=== PATIENT | female | born 1960 | race Caucasian/White ===

== ENCOUNTER → 2022-08-28 15:56 | Outpatient (REF) | payer OTHER, SELFPAY ==
--- NOTE | 2022-08-28 16:05 | CA_ITS ---
Transthoracic Echocardiogram Patient (Last, First, Middle): Rosemary Ernst, Gender: Female Date of : 1960 Age: 62 Procedure Date: 08/28/2022 Procedure Type: Transthoracic Echocardiogram Location: OP Height: 162.56 cm Weight: 58.97 kg BSA: 1.63 m2 Heart Rate: bpm BP: 122 / 60 mmHg [place] Working Supervisor: Referring MD: Preston Yates Symptoms: SUDDEN ONSET DE ANDA R06.09 OTHER FORMS DYSPNEA Study Quality: Fair ECG Rhythm: Sinus Conclusions: - The left ventricular systolic function is normal. The visually estimated ejection fraction is between 60-65%. - The basal inferior, mid inferior, mid inferoseptal, basal anteroseptal, and mid anteroseptal segments are hypokinetic. - No obvious valvular pathology seen on this study. Findings Left Ventricle Normal left ventricular cavity size. There is normal left ventricular wall thickness. The left ventricular systolic function is normal. The visually estimated ejection fraction is between 60-65%. There is evidence of regional wall motion abnormalities. Diastolic function is normal for age. LV peak GLS -20.6%. Wall Motion Rest Echo Findings The basal inferior, mid inferior, mid inferoseptal, basal anteroseptal, and mid anteroseptal segments are hypokinetic. Right Ventricle Normal right ventricular cavity size and systolic function. Atria Both atria are normal in size. Aortic Valve There is a normal trileaflet aortic valve. There is no aortic valve stenosis. There is no aortic valve regurgitation. Mitral Valve The mitral valve appears normal. There is trace mitral valve regurgitation. There is no mitral valve stenosis. Pulmonic Valve The pulmonic valve is likely normal. Tricuspid Valve Normal tricuspid valve structure. There is trace tricuspid valve regurgitation. There is no evidence of pulmonary hypertension. Great Vessels The asc aorta is normal in size. Venous The inferior vena cava is normal in size and collapses greater than 50% with inspiration. Pericardium/Pleural There is no evidence of pericardial effusion. Prior Study Comparison No prior study available for comparison. Recommendations, Care & Conclusions No obvious valvular pathology seen on this study. Measurements 2D Linear Measurements IVSd: 0.86 0.6-0.9/0.6-1.0 cm LVIDd: 3.89 3.9-5.3/4.2-5.9 cm LVIDd Index: 2.39 2.4-3.2/2.2-3.1 cm/m2 LVIDs: 2.57 2.0-3.6 cm LVPWd: 0.91 0.7-1.1 cm Ao Root: 3.00 2.1-3.5 cm LA Diam: 2.80 2.7-3.8/3.0-4.0 cm LAIDs Index: 1.72 1.5-2.3 cm/m2 LV Mass: 127.56 67-162/88-224 g LV Mass Index: 78.26 43-95/49-115 g/m2 LVOT Diam: 1.90 3.0+(-)1.3 cm Mitral Valve MV Pk E: 0.77 MV PK A: 0.56 MV Decel Time: 199.00 E/A: 1.40 E'Lateral: 9.46 E'Medial: 9.36 E/E' Med: 8.20 E/E' Lat: 8.20 PHT: 58.00 MVA PHT: 3.79 Decel Giles: 3.88 Aortic Valve AoV Pk Eric: 1.35 AoV Mn Eric: 0.91 AoV VTI: 0.30 AoV Pk Grad: 7.00 Aov Mn Grad: 4.00 JOSUE Cont.VTI: 1.65 LVOT LVOT Pk Eric: 0.81 LVOT Mn Eric: 0.57 LVOT VTI: 0.18 LVOT Pk Grad: 3.00 LVOT Mn Grad: 2.00 LVOT Diam: 1.90 LVOT Area: 2.84 Diastolic Function MV Pk E: 0.77 MV Pk A: 0.56 E/A: 1.40 E'Medial: 9.36 E/E' Med: 8.20 E' Laterial: 9.46 E/E' Lat: 8.20 Right Ventricle TAPSE (mm): 26.00 TVS' Eric: 13.00 Tricuspid Valve TR Pk Eric: 2.01 TR Pk Grad: 16.00 RA Press: 3.00 RVSP: 19.00 Great Vessels Aorta Ao Root-2D: 3.00 2.0-3.7 cm Ao Asc: 2.90 2.1-3.4 cm Pulmonary Valve PV Pk Eric: 0.87 Peak PV Grad: 3.00 Updated in Other Vendor System with Status of Final Siddharth Burton MD electronically signed on 08/29/2022 12:21:33 PM with status of Final
== END ==
LOC: HO.CARD 15:56
PROVIDERS: Visit Provider Nurse Practitioner Family
DX: R06.09 Other forms of dyspnea (principal)
CPT/HCPCS: 93306; 93356